=== PATIENT | female | born 1955 | race Caucasian/White ===

== ENCOUNTER 2024-11-28 18:30 | Inpatient (IN) | payer MEDICARE, MEDICAID ==
[~2024-11-28] VITALS: Ht 154.9 cm; Wt 57.8 kg
[2024-11-28] MEDS: IPRATROPIUM/ALBUTEROL 0.5-3(2.5)MG/3ML NEB HHN SCH (14:33)
[~2024-11-28 18:30] MED LIST: AMLO10TA80 MT; AMLO10TA80 PO; ASPI-1406 PO; CHOL500010 PO; CLON0.2T MT; DOXA2TAB2 PO; EMPA10TA PO; FERR325T30 PO; FOLI-43 PO; FURO40TA5 PO; ISOS60TA76 PO; SEVE800T8 PO
[2024-11-28 19:37] LABS: BASOPHILS % 1.3 % (0.0-2.0); EOSINOPHILS % 6.8 % (0.0-5.0); HEMATOCRIT. 35.3 % (36.0-48.0); HEMOGLOBIN. 11.5 g/dL (12.0-16.0); LYMPHOCYTES % 22.9 % (20.0-50.0); MEAN CORPUSCULAR HEMOGLOBIN 28.6 pg (28.0-32.0); MEAN CORPUSCULAR HGB CONC 32.6 g/dL (31.0-37.0); MEAN CORPUSCULAR VOLUME 87.7 fL (81.0-99.0); MEAN PLATELET VOLUME 7.5 fl (7.4-10.4); MONOCYTES % 7.6 % (2.0-8.0); NEUTROPHILS % 61.4 % (40.0-76.0); PLATELET 137 x1000/uL (130-400); RED BLOOD CELL COUNT 4.03 mill/uL (4.2-5.4); RED CELL DISTRIBUTION WIDTH 18.4 % (11.6-14.6); WHITE BLOOD COUNT 5.1 x1000/uL (4.5-11.0)
[2024-11-28 19:45] LABS: CHLORIDE 99 mEq/L (98-107); POTASSIUM 4.3 mEq/L (3.5-5.1); SODIUM 136 mEq/L (136-145)
[2024-11-28 19:46] LABS: CALCIUM 8.8 mg/dL (8.7-10.4); CARBON DIOXIDE 29 mEq/L (21-32)
[2024-11-28 19:51] LABS: CREATININE 2.2 mg/dL (0.6-1.0); GLUCOSE 155 mg/dL (70-105); UREA NITROGEN BLOOD 17 mg/dL (9-23)
[2024-11-28 19:53] LABS: ALANINE AMINOTRANSFERASE 9 IU/L (10-49); ALBUMIN 3.7 g/dL (3.2-4.8); ASPARTATE AMINOTRANSFERASE 30 IU/L (<34); BILIRUBIN DIRECT 0.2 mg/dL (<=3.0); BILIRUBIN TOTAL 0.6 mg/dL (0.1-1.0); PROTEIN TOTAL 6.7 g/dL (6.0-8.3)
[2024-11-28] MEDS: HYDRALAZINE 20MG/ML VIAL IV ONE (20:08)
[2024-11-28 20:33] LABS: TROPONIN I HIGH SENSITIVITY 67 ng/L (3.0-34)
[2024-11-28] MEDS: ASPIRIN 325MG TABLET PO ONE (21:23)
[2024-11-28] MEDS ORDERED: DOCUSATE SODIUM 100MG CAPSULE PO PRN (22:15)
[2024-11-28] MEDS ORDERED: GUAIFENESIN 200MG/10ML SUGAR FREE UDC PO PRN (22:15)
[2024-11-28] MEDS ORDERED: ONDANSETRON HCL 4MG/2ML INJ IV PRN (22:15)
[2024-11-28] MEDS ORDERED: ACETAMINOPHEN 325MG TABLET PO PRN ×2 (22:15)
[2024-11-28] MEDS ORDERED: DEXTROSE 50% WATER 50ML SYRINGE IV PRN (22:15)
[2024-11-28] MEDS ORDERED: IPRATROPIUM/ALBUTEROL 0.5-3(2.5)MG/3ML NEB HHN PRN (22:15)
[2024-11-28 22:58] VITALS: BP 197/88; PULSE 83; RESP 25; TEMP 36.9
[2024-11-28 23:32] VITALS: BP 206/95; PULSE 83; RESP 27; TEMP 36.8; O2SAT 97
[2024-11-28] MEDS: ENOXAPARIN 30MG/0.3ML SYR SUBCUT SCH (23:46)
[2024-11-28] MEDS: CLONIDINE 0.1MG TABLET PO SCH (23:46)
[2024-11-29] VITALS (7 sets, daily range): BP systolic 115–208; BP diastolic 63–89; PULSE 60–74; RESP 13–36; TEMP 36.6–37; O2SAT 96–100
[2024-11-29 00:03] LABS: POTASSIUM 3.9 mEq/L (3.5-5.1)
[2024-11-29 00:05] LABS: CALCIUM 8.8 mg/dL (8.7-10.4)
[2024-11-29 00:09] LABS: CREATININE 2.4 mg/dL (0.6-1.0)
[2024-11-29 00:15] LABS: IRON 62 ug/dL (50-170)
[2024-11-29 00:18] LABS: TOTAL IRON BINDING CAPACITY 234 ug/dl (250-425)
[2024-11-29 00:34] LABS: HEPATITIS B SURFACE ANTIGEN NEGATIVE (Negative)
[2024-11-29 00:35] LABS: FOLIC ACID (FOLATE) SERUM 15.03 ng/mL (>5.38); VITAMIN B12 SERUM 1369 pg/mL (211-911)
[2024-11-29 00:55] LABS: HEPATITIS C AB NON REACTIVE (Neg) (Negative)
[2024-11-29 01:08] LABS: INFLUENZA TYPE A Presumptive Negative (Pres. Neg.); INFLUENZA TYPE B Presumptive Negative (Pres. Neg.)
[2024-11-29 01:09] LABS: RESPIRATORY SYNCYTIAL VIRUS Not Detected (Not Detectd)
[2024-11-29] MEDS: HYDRALAZINE 20MG/ML VIAL IV SCH (04:34)
[2024-11-29] MEDS: CLONIDINE 0.1MG TABLET PO SCH (06:47)
[2024-11-29] MEDS: INSULIN LISPRO 100 UNITS/ML SUBCUT SCH (06:47)
[2024-11-29] MEDS: BLOOD SUGAR DIAGNOSTIC STRIP TEST SCH (06:47)
[2024-11-29] MEDS: PANTOPRAZOLE 40MG DR TABLET PO SCH (06:47)
[2024-11-29 06:56] LABS: BASOPHILS % 0.8 % (0.0-2.0); EOSINOPHILS % 8.2 % (0.0-5.0); HEMOGLOBIN. 10.8 g/dL (12.0-16.0); LYMPHOCYTES % 26.3 % (20.0-50.0); MEAN CORPUSCULAR HEMOGLOBIN 28.8 pg (28.0-32.0); MEAN CORPUSCULAR HGB CONC 32.7 g/dL (31.0-37.0); MEAN CORPUSCULAR VOLUME 87.9 fL (81.0-99.0); MONOCYTES % 8.1 % (2.0-8.0); NEUTROPHILS % 56.6 % (40.0-76.0); PLATELET 123 x1000/uL (130-400); RED BLOOD CELL COUNT 3.76 mill/uL (4.2-5.4); RED CELL DISTRIBUTION WIDTH 18.2 % (11.6-14.6); WHITE BLOOD COUNT 4.4 x1000/uL (4.5-11.0)
[2024-11-29] MEDS ORDERED: HYDRALAZINE 20MG/ML VIAL IV PRN (07:00)
[2024-11-29 07:09] LABS: CLARITY URINE CLEAR (CLEAR); COLOR URINE YELLOW (YELLOW); GLUCOSE URINE 3+ (NEGATIVE); KETONES URINE TRACE (NEGATIVE); LEUKOCYTE ESTERASE URINE NEGATIVE (NEGATIVE); NITRITE URINE NEGATIVE (NEGATIVE); OCCULT BLOOD URINE TRACE (NEGATIVE); PROTEIN URINE 4+ (NEGATIVE); SPECIFIC GRAVITY URINE 1.023 (1.005-1.030)
[2024-11-29 07:15] LABS: LDL CHOLESTEROL 102 mg/dL (5-100); TRIGLYCERIDE 100 mg/dL (0-150)
[2024-11-29 07:17] LABS: CHOLESTEROL 172 mg/dL (<200); HDL CHOLESTEROL 50 mg/dL (>65)
[2024-11-29 07:19] LABS: T4 FREE 1.25 ng/dL (0.89-1.76); THYROID STIMULATING HORMONE < 0.10 uIU/mL (0.55-4.78)
[2024-11-29 07:32] LABS: SQUAMOUS EPITHELIAL CELL URINE 1+ /lpf (RARE/1+)
[2024-11-29 07:33] LABS: BACTERIA URINE TRACE
[2024-11-29 07:35] LABS: YEAST URINE NONE SEEN
[2024-11-29 07:36] LABS: *AMPHETAMINES SCREEN URINE NEGATIVE (NEGATIVE); *BARBITURATES SCREEN URINE NEGATIVE (NEGATIVE); *BENZODIAZEPINES SCREEN URINE NEGATIVE (NEGATIVE); *COCAINE SCREEN URINE NEGATIVE (NEGATIVE); CANNABINOID URINE SCREEN NEGATIVE (NEGATIVE); ECSTASY MDMA SCREEN URINE NEGATIVE (NEGATIVE); METHADONE URINE SCREEN NEGATIVE (NEGATIVE); OPIATES URINE SCREEN NEGATIVE (NEGATIVE); PHENCYCLIDINE URINE SCREEN NEGATIVE (NEGATIVE)
[2024-11-29 07:39] LABS: FINE GRANULAR CASTS URINE 0-5 /lpf; HYALINE CASTS URINE 0-5 /lpf
[2024-11-29 07:41] LABS: RBC URINE 15-25 /hpf (0-2)
[2024-11-29] MEDS: HYDRALAZINE HCL 25MG TABLET PO SCH (08:28)
[2024-11-29] MEDS: DOXAZOSIN MESYLATE 2MG TABLET PO SCH (08:29)
[2024-11-29] MEDS: ISOSORBIDE MONONITRATE 60MG TABLET SR 24HR PO SCH (08:29)
[2024-11-29] MEDS: AMLODIPINE 10MG TABLET PO SCH (08:29)
[2024-11-29] MEDS: FERROUS SULFATE 325MG TABLET PO SCH (08:29)
[2024-11-29] MEDS: ASPIRIN 81MG EC TABLET PO SCH (08:29)
[2024-11-29] MEDS: FOLIC ACID 1MG TABLET PO SCH (08:29)
[2024-11-29] MEDS: ENOXAPARIN 30MG/0.3ML SYR SUBCUT SCH (08:30)
[2024-11-29] MEDS: EMPAGLIFLOZIN 10MG TABLET PO SCH (08:30)
[2024-11-29] MEDS ORDERED: FUROSEMIDE 40MG TABLET PO SCH (09:00)
[2024-11-29] MEDS ORDERED: METO2.5T2 MT (16:42)
[2024-11-29] MEDS ORDERED: FOLI0.8T23 MT (16:42)
[2024-11-29] MEDS ORDERED: DAPA10TA MT (16:42)
[2024-11-29] MEDS ORDERED: NIFE-33 PO (16:42)
[2024-11-29 17:16] LABS: CREATINE KINASE MB FRACTION 3.3 ng/mL (0.5-3.6)
[2024-11-30] VITALS (12 sets, daily range): BP systolic 142–163; BP diastolic 60–81; PULSE 61–75; RESP 16–23; TEMP 36.114–36.8; O2SAT 92–100
[2024-11-30 07:00] LABS: BASOPHILS % 0.9 % (0.0-2.0); EOSINOPHILS % 7.5 % (0.0-5.0); HEMATOCRIT. 30.5 % (36.0-48.0); HEMOGLOBIN. 10.1 g/dL (12.0-16.0); LYMPHOCYTES % 23.1 % (20.0-50.0); MEAN CORPUSCULAR HGB CONC 33.2 g/dL (31.0-37.0); MEAN CORPUSCULAR VOLUME 87.4 fL (81.0-99.0); MEAN PLATELET VOLUME 8.1 fl (7.4-10.4); MONOCYTES % 8.9 % (2.0-8.0); NEUTROPHILS % 59.6 % (40.0-76.0); PLATELET 123 x1000/uL (130-400); RED BLOOD CELL COUNT 3.49 mill/uL (4.2-5.4); RED CELL DISTRIBUTION WIDTH 18.2 % (11.6-14.6); WHITE BLOOD COUNT 4.7 x1000/uL (4.5-11.0)
[2024-11-30 07:13] LABS: POTASSIUM 4.3 mEq/L (3.5-5.1)
[2024-11-30 07:15] LABS: CALCIUM 8.4 mg/dL (8.7-10.4)
[2024-11-30 07:30] LABS: CREATININE 3.4 mg/dL (0.6-1.0)
[2024-11-30] MEDS ORDERED: HYDR25TA78 PO (09:15)
[2024-11-30 09:51] LABS: HEPATITIS B SURFACE ANTIGEN NEGATIVE (Negative)
[2024-11-30 10:11] LABS: HEPATITIS A AB IGM NEGATIVE (Negative)
[2024-11-30 10:12] LABS: HEPATITIS B CORE AB IGM NEGATIVE (Negative); HEPATITIS C AB NON REACTIVE (Neg) (Negative)
== END 2024-11-30 15:30 | disposition home health service (06) | DRG 280 ==
LOC: ER 18:30 → EDBEDREQ 19:21 → EDBEDREQTM 20:55 → ENRESERV 22:02 → 3WST 22:44
PROVIDERS: ADMIT Internal Medicine; ATTEND Internal Medicine
PROC: 5A1D70Z Performance of Urinary Filtration, Intermittent, Less than 6 Hours Per Day (ICD-10-PCS; principal; 2024-11-30)
DX: I16.1 Hypertensive emergency (principal); I50.33 Acute on chronic diastolic (congestive) heart failure; I21.A1 Myocardial infarction type 2; J96.01 Acute respiratory failure with hypoxia; N18.6 End stage renal disease; J84.9 Interstitial pulmonary disease, unspecified; I13.2 Hypertensive heart and chronic kidney disease with heart failure and with stage 5 chronic kidney disease, or end stage renal disease; I08.0 Rheumatic disorders of both mitral and aortic valves; E11.65 Type 2 diabetes mellitus with hyperglycemia; D64.9 Anemia, unspecified; E11.22 Type 2 diabetes mellitus with diabetic chronic kidney disease; E78.00 Pure hypercholesterolemia, unspecified; Z79.82 Long term (current) use of aspirin; Z79.84 Long term (current) use of oral hypoglycemic drugs; Z79.899 Other long term (current) drug therapy; Z99.2 Dependence on renal dialysis
CPT/HCPCS: 36415; 71045; 76604; 80048; 80061; 80076; 80305; 81003; 82040; 82550; 82553; 82607; 82746; 82962; 83036; 83540; 83550; 83880; 84439; 84443; 84484; 85025; 86705; 86709; 87340; 87420; 87804; 90935; 93005; 93970; 97166; 97530; 99291; A4606; J0360; J1650; J1815